=== PATIENT | female | born 1945 | race Caucasian/White ===

== ENCOUNTER → 2017-05-08 | Outpatient (CLI) | payer MEDICARE, OTHER, BC ==
[~2017-05-08] MED LIST: ADVAIR DIS1 PUFF/DO1 IH; ASCORBIC ACID500 MG PO; FEOSOL-DPS325 MG PO; MAALOX DPS30 ML PO; PROAIR RESPICL90 MCG IH; SENOKOT-S TABL1 EACH PO; SINGULAIR10 MG PO; SYNTHROID75 MCG PO; TYLENOL DPS325 MG PO; ULTRAM DPS50 MG PO; VITAMIN D1000 UNI1 PO
== END | disposition home or self-care (01) ==
LOC: RAD.S 10:33
DX: M54.5 Low back pain (principal); M47.896 Other spondylosis, lumbar region; M43.16 Spondylolisthesis, lumbar region